=== PATIENT | female | born 1960 | race Caucasian/White ===

== ENCOUNTER → 2021-01-02 | Outpatient (CLI) | payer OTHER | LOC: HEART 5 15:23 | DX: J30.9 Allergic rhinitis, unspecified (principal); R94.39 Abnormal result of other cardiovascular function study; I27.20 Pulmonary hypertension, unspecified; F41.9 Anxiety disorder, unspecified; R94.2 Abnormal results of pulmonary function studies; F17.210 Nicotine dependence, cigarettes, uncomplicated | CPT/HCPCS: 94060; 94729 ==

== ENCOUNTER → 2021-01-19 | Outpatient (CLI) | payer OTHER | LOC: KOH-I 10:16 | DX: F17.200 Nicotine dependence, unspecified, uncomplicated (principal); R91.8 Other nonspecific abnormal finding of lung field | CPT/HCPCS: 71271 ==

== ENCOUNTER → 2021-10-24 | Outpatient (CLI) | payer OTHER | LOC: HEART 5 14:09 | DX: I73.9 Peripheral vascular disease, unspecified (principal); M54.50 Low back pain, unspecified ==

== ENCOUNTER → 2022-03-07 | Outpatient (CLI) | payer OTHER | LOC: KOH-I 03-02 15:30 | DX: F17.210 Nicotine dependence, cigarettes, uncomplicated (principal) | CPT/HCPCS: 71271 ==

== ENCOUNTER → 2022-03-07 | Outpatient (CLI) | payer OTHER | LOC: RT 14:02 | DX: G47.34 Idiopathic sleep related nonobstructive alveolar hypoventilation (principal) | CPT/HCPCS: 36600; 82803 ==